=== PATIENT | male | born 1980 | race African-American/Black ===

== ENCOUNTER 2024-06-13 14:51 | Inpatient (IN) | payer OTHER ==
[2024-06-13] MEDS ORDERED: Cefepime 2 GM VIAL ONE (16:09)
[2024-06-13] MEDS ORDERED: Sodium Chloride 0.9% 100 ML ONE (16:09)
[2024-06-13 17:17] LABS: #Basophils 0.04 10x3/uL (0.0-0.2); %Basophils 0.3 % (0.0-1.0); %Eosinophils 1.6 % (0.0-10.0); %Lymphocytes 13.9 % (21.0-51.0); %Monocytes 8.1 % (0.0-10.0); %Neutrophils 75.7 % (42.0-75.0); Hematocrit 38.7 % (42.0-52.0); Hemoglobin 13.1 g/dL (14.0-18.0); Mean Corpuscular HGB CONC 33.9 g/dL (32.0-36.0); Mean Corpuscular Hemoglobin 31.5 pg (27.0-31.0); Platelet Count 281 10x3/uL (130-400); RBC Distribution Width 11.8 % (11.5-14.5); Red Blood Cell (RBC) Count 4.16 mill/uL (4.70-6.10)
[2024-06-13 17:37] LABS: ALT (SGPT) 35 U/L (Less than 45); AST (SGOT) 43 U/L (11-34); Albumin 3.7 g/dL (3.1-4.5); Alkaline Phosphatase 87 U/L (40-110); Anion Gap 15 mmol/L (10-20); BUN (Urea Nitrogen) 10 mg/dL (8.9-20.6); Bilirubin, Total 0.4 mg/dL (0.3-1.2); Calc. Creatinine Clearance 0 mL/min (70-130); Calcium 9.3 mg/dL (7.8-10.44); Carbon Dioxide 23 mmol/L (22-29); Chloride 104 mmol/L (98-107); Estimated GFR 102; Globulin 5.2 g/dL (2.4-3.5); Glucose 86 mg/dL (70-105); Protein, Total 8.9 g/dL (6.0-8.3); Sodium 137 mmol/L (136-145)
[2024-06-13] MEDS ORDERED: Acetaminophen 325 MG TAB PO PRN (22:30)
[2024-06-13 22:51] LABS: Lactic Acid 1.32 mmol/L (0.50-2.20)
[2024-06-13] MEDS ORDERED: Glucagon 1 MG/ML KIT IM PRN (22:51)
[2024-06-13] MEDS ORDERED: Insulin Lispro 100 UNIT/ML 10 ML VIAL SC PRN ×2 (22:51)
[2024-06-13] MEDS ORDERED: Dextrose 5% in Water 1,000 ML IV PRN (22:51)
[2024-06-13] MEDS ORDERED: Dextrose 50% Abboject 50 ML SYRINGE SLOW IVP PRN (22:51)
[2024-06-13] MEDS: Vancomycin (BATCH) 1.75 GM in Premix 1 BAG IVPB SCH (23:23)
[2024-06-13] MEDS: Cefepime 2 GM in Sodium Chloride 0.9% 100 ML IVPB SCH (23:41)
[2024-06-13 23:50] LABS: Hemoglobin A1c 5.3 % (4.0-6.0)
[2024-06-14] MEDS ORDERED: Vancomycin 1 GM in Premix 1 BAG IVPB SCH (02:00)
[2024-06-14] MEDS: Vancomycin (BATCH) 1.5 GM in Premix 1 BAG IVPB SCH (05:46)
[2024-06-14 07:02] LABS: #Basophils 0.05 10x3/uL (0.0-0.2); %Basophils 0.4 % (0.0-1.0); %Eosinophils 1.5 % (0.0-10.0); %Lymphocytes 14.3 % (21.0-51.0); %Monocytes 7.8 % (0.0-10.0); %Neutrophils 75.5 % (42.0-75.0); Hematocrit 37.5 % (42.0-52.0); Hemoglobin 12.7 g/dL (14.0-18.0); Mean Corpuscular HGB CONC 33.9 g/dL (32.0-36.0); Mean Corpuscular Hemoglobin 31.9 pg (27.0-31.0); Mean Corpuscular Volume 94.2 fL (78.0-98.0); Mean Platelet Volume 8.6 fL (7.4-10.4); Platelet Count 302 10x3/uL (130-400); RBC Distribution Width 11.7 % (11.5-14.5); Red Blood Cell (RBC) Count 3.98 mill/uL (4.70-6.10)
[2024-06-14 07:10] LABS: Anion Gap 14 mmol/L (10-20); BUN (Urea Nitrogen) 7 mg/dL (8.9-20.6); Calc. Creatinine Clearance 144 mL/min (70-130); Calcium 8.8 mg/dL (7.8-10.44); Carbon Dioxide 22 mmol/L (22-29); Chloride 107 mmol/L (98-107); Estimated GFR 109; Glucose 91 mg/dL (70-105); Potassium 4.3 mmol/L (3.5-5.1); Sodium 139 mmol/L (136-145)
[2024-06-14] MEDS: Enoxaparin 40 MG (0.4 mL) SYRINGE SC SCH (08:46)
[2024-06-14] MEDS: HYDROcodone/Acetaminophen 5/325 mg Tablet PO PRN (14:47)
[2024-06-14] MEDS ORDERED: Vancomycin (BATCH) 1.5 GM in Premix 1 BAG IVPB SCH (16:00)
[2024-06-14] MEDS: Vancomycin 1.5 GRAM/300 ML BAG 1.5 GM in Premix 1 BAG IVPB SCH (18:18)
[2024-06-15 07:19] LABS: #Basophils 0.05 10x3/uL (0.0-0.2); %Basophils 0.5 % (0.0-1.0); %Eosinophils 2.5 % (0.0-10.0); %Lymphocytes 20.5 % (21.0-51.0); %Monocytes 8.1 % (0.0-10.0); %Neutrophils 68.1 % (42.0-75.0); Hematocrit 37.4 % (42.0-52.0); Hemoglobin 12.8 g/dL (14.0-18.0); Mean Corpuscular HGB CONC 34.2 g/dL (32.0-36.0); Mean Corpuscular Hemoglobin 31.8 pg (27.0-31.0); Mean Platelet Volume 8.4 fL (7.4-10.4); Platelet Count 327 10x3/uL (130-400); RBC Distribution Width 11.6 % (11.5-14.5); Red Blood Cell (RBC) Count 4.02 mill/uL (4.70-6.10)
[2024-06-15 07:35] LABS: Anion Gap 13 mmol/L (10-20); BUN (Urea Nitrogen) 11 mg/dL (8.9-20.6); Calc. Creatinine Clearance 142 mL/min (70-130); Calcium 8.9 mg/dL (7.8-10.44); Carbon Dioxide 24 mmol/L (22-29); Chloride 104 mmol/L (98-107); Estimated GFR 109; Glucose 92 mg/dL (70-105); Potassium 4.3 mmol/L (3.5-5.1); Sodium 137 mmol/L (136-145)
[2024-06-15 08:31] VITALS: BMI 24.8
[2024-06-15] MEDS: levETIRAcetam 500 MG TAB PO SCH ×2 (12:45→20:09)
[2024-06-15] MEDS ORDERED: Bupivacaine PF 0.5% 30 ML VIAL ONE (13:16)
[2024-06-15] MEDS ORDERED: PROPOFOL 20 ML ONE (13:16)
[2024-06-15] MEDS ORDERED: Lidocaine 2% PF 5 ML VIAL ONE (13:16)
[2024-06-15] MEDS ORDERED: EPINEPHrine 1 MG/ML VIAL ONE (13:16)
[2024-06-15] MEDS ORDERED: fentaNYL PF 100 MCG/2 ML SYRINGE ONE ×2 (13:16→14:29)
[2024-06-15] MEDS ORDERED: Ondansetron PF 4 MG/2 ML Vial ONE (13:52)
[2024-06-15] MEDS ORDERED: HYDROmorphone 0.5 MG/0.5 ML SYRINGE ONE (14:30)
[2024-06-15] MEDS ORDERED: Meperidine HCl/PF 25 MG (1 mL) VIAL ONE (14:48)
[2024-06-15] MEDS: Propranolol 10 MG TAB PO SCH (16:33)
[2024-06-15] MEDS: Acetaminophen 500 MG TAB PO SCH (17:54)
[2024-06-15 18:39] VITALS: BMI 24.8
[2024-06-15] MEDS: Divalproex Sodium DR 500 MG TAB PO SCH (20:09)
[2024-06-15] MEDS: traMADol HCl 50 MG TAB PO PRN (20:32)
[2024-06-15] MEDS: Ibuprofen 600 MG TAB PO PRN (23:30)
[2024-06-16] MEDS: Morphine 2 MG/ML VIAL SLOW IVP SCH ×2 (00:18→08:30)
[2024-06-16] MEDS: Morphine 2 MG/ML VIAL SLOW IVP PRN (05:52)
[2024-06-16 07:09] LABS: #Basophils 0.06 10x3/uL (0.0-0.2); %Basophils 0.7 % (0.0-1.0); %Eosinophils 2.6 % (0.0-10.0); %Lymphocytes 23.8 % (21.0-51.0); %Monocytes 7.9 % (0.0-10.0); %Neutrophils 64.5 % (42.0-75.0); Hematocrit 36.5 % (42.0-52.0); Hemoglobin 12.5 g/dL (14.0-18.0); Mean Corpuscular HGB CONC 34.2 g/dL (32.0-36.0); Mean Corpuscular Hemoglobin 31.8 pg (27.0-31.0); Mean Corpuscular Volume 92.9 fL (78.0-98.0); Mean Platelet Volume 8.1 fL (7.4-10.4); Platelet Count 340 10x3/uL (130-400); RBC Distribution Width 11.4 % (11.5-14.5); Red Blood Cell (RBC) Count 3.93 mill/uL (4.70-6.10)
[2024-06-16 07:32] LABS: Vancomycin, Random 44.1 ug/mL (See Comment)
[2024-06-16 07:33] LABS: Anion Gap 12 mmol/L (10-20); BUN (Urea Nitrogen) 13 mg/dL (8.9-20.6); Calc. Creatinine Clearance 163 mL/min (70-130); Calcium 8.7 mg/dL (7.8-10.44); Carbon Dioxide 22 mmol/L (22-29); Chloride 105 mmol/L (98-107); Estimated GFR 113; Glucose 99 mg/dL (70-105); Potassium 4.4 mmol/L (3.5-5.1); Sodium 135 mmol/L (136-145)
[2024-06-16] MEDS: Morphine 4 MG/ML VIAL ONE (07:54)
[2024-06-16 08:03] VITALS: BP 118/79; TEMP 98.4
[2024-06-16] MEDS: Hydrochlorothiazide 25 MG TAB PO SCH (09:08)
[2024-06-16] MEDS: Lisinopril 10 MG TAB PO SCH (09:08)
[2024-06-16] MEDS: Polyethylene Glycol 3350 17 GM Packet PO SCH (09:11)
[2024-06-16] MEDS: metFORMIN 500 MG TAB PO SCH (09:11)
[2024-06-16] MEDS: DULoxetine 30 MG CAP PO SCH (09:11)
[2024-06-16] MEDS ORDERED: Ibuprofen 600 MG TAB PO PRN (10:59)
[2024-06-16] MEDS: Hydrocortisone 1% Cream 30 GM TUBE TOP SCH (13:57)
[2024-06-16] MEDS ORDERED: HYDROcodone/Acetaminophen 5/325 mg Tablet PO PRN (14:00)
[2024-06-16] MEDS ORDERED: Sulfameth/Trimethoprim DS 800-160mg TAB PO SCH (21:00)
== END 2024-06-16 15:30 | DRG 872 ==
LOC: EEVIPCON 14:51 → ERS 14:51 → T4-B 20:50 → OBSVTOIN 06-14 15:53
PROVIDERS: ADMIT Family Medicine; ATTEND Family Medicine
PROC: 0J9M0ZZ Drainage of Left Upper Leg Subcutaneous Tissue and Fascia, Open Approach (ICD-10-PCS; principal; 2024-06-15)
PROC: 3E03329 Introduction of Other Anti-infective into Peripheral Vein, Percutaneous Approach (ICD-10-PCS; 2024-06-15)
PROC: 3E033XZ Introduction of Vasopressor into Peripheral Vein, Percutaneous Approach (ICD-10-PCS; 2024-06-15)
DX: A41.02 Sepsis due to Methicillin resistant Staphylococcus aureus (principal); L02.416 Cutaneous abscess of left lower limb; L03.116 Cellulitis of left lower limb; Z66 Do not resuscitate; L25.9 Unspecified contact dermatitis, unspecified cause; I10 Essential (primary) hypertension; E11.9 Type 2 diabetes mellitus without complications; M54.30 Sciatica, unspecified side; Z88.8 Allergy status to other drugs, medicaments and biological substances; Z91.013 Allergy to seafood; Z79.899 Other long term (current) drug therapy; Z87.891 Personal history of nicotine dependence
CPT/HCPCS: 36415; 36416; 80048; 80053; 80202; 83036; 83605; 85025; 87040; 87070; 87077; 87186; 87205; 96365; 96366; 96367; 96376; 97139; G0378; J0171; J0665; J0692; J1171; J1650; J2175; J2270; J2272; J2405; J2704; J3370